=== PATIENT | male | born 1955 | race Caucasian/White ===

== ENCOUNTER → 2016-10-19 | Outpatient (CLI) | payer OTHER ==
--- NOTE | 2016-10-19 09:13 | CPEKG ---
Heart Rate: 70 RR Interval: 857 P-R Interval: 164 QRSD Interval: 94 QT Interval: 396 QTC Interval: 428 P [place]: 70 QRS [place]: -66 T Wave [place]: 33 EKG Severity - ABNORMAL ECG - EKG Impression: SINUS RHYTHM EKG Impression: VENTRICULAR BIGEMINY EKG Impression: LEFT ANTERIOR FASCICULAR BLOCK Electronically Signed By: Juan Luis Marinelli 19-Oct-2016 11:49:49
== END ==
LOC: FCP 08:58
PROVIDERS: ATTEND Otolaryngology
DX: Z01.818 Encounter for other preprocedural examination (principal)

== ENCOUNTER 2016-10-20 06:28 | Observation (INO) | payer OTHER ==
[2016-10-20] MEDS ORDERED: LIDOCAINE 1% 5 ML SDV ONE (06:30)
[2016-10-20] MEDS ORDERED: DEXAMETHASONE 10 MG/ML VIAL IVP ONE (07:00)
[2016-10-20] MEDS ORDERED: ceFAZolin 2 GM/DEXTROSE 100 ML IV ONE (07:00)
[2016-10-20] MEDS ORDERED: BUPIVACAINE 0.5% 30 ML SDV ONE (07:08)
[2016-10-20] MEDS ORDERED: LIDO/EPI 1% **Not for Epidural 20 ML MDV ONE ×2 (07:09→09:22)
--- NOTE | 2016-10-20 07:14 | CPEKG ---
Heart Rate: 68 RR Interval: 882 P-R Interval: 168 QRSD Interval: 100 QT Interval: 468 QTC Interval: 498 P [place]: 44 QRS [place]: -52 T Wave [place]: 69 EKG Severity - ABNORMAL ECG - EKG Impression: SINUS RHYTHM EKG Impression: MULTIPLE ATRIAL PREMATURE COMPLEXES EKG Impression: LAD, CONSIDER LEFT ANTERIOR FASCICULAR BLOCK EKG Impression: BORDERLINE PROLONGED QT INTERVAL Electronically Signed By: Juan Luis Marinelli 21-Oct-2016 08:40:54
[2016-10-20] MEDS ORDERED: fentaNYL 250 MCG/5 ML INJ ONE (08:18)
[2016-10-20] MEDS ORDERED: PROPOFOL 200 MG/20 ML VIAL ONE (08:18)
[2016-10-20] MEDS ORDERED: PHENYLEPHRINE HCL 50 MG in D5W 250 ML IV ONE (10:00)
[2016-10-20] MEDS ORDERED: REMIFENTANIL HCL 1 MG VIAL ONE (10:44)
[2016-10-20] MEDS ORDERED: PHENYLEPHRINE HCL 100 MCG/ML SYR ONE ×2 (11:59→12:05)
[2016-10-20] MEDS ORDERED: SUCCINYLCHOLINE CHLORIDE*ANESTHESIA ONLY*200 MG/10 ML SYR IVP ONE (12:05)
[2016-10-20] MEDS ORDERED: DEXAMETHASONE 4 MG/ML VIAL ONE (12:06)
[2016-10-20] MEDS ORDERED: ceFAZolin 1 GM VIAL ONE ×2 (12:26)
[2016-10-20] MEDS ORDERED: ONDANSETRON 4 MG/2 ML VIAL IVP PRN (13:33)
[2016-10-20] MEDS ORDERED: D5W LR 1,000 ML IV SCH (13:45)
--- NOTE | 2016-10-20 14:07 | GOP ---
DATE OF OPERATION: 10/20/2016 SURGEON: Josh Castillo MD FREELANCE WRITER: Wilton De La Rosa MD ANESTHESIA: General. PREOPERATIVE DIAGNOSIS: Right-sided facial melanoma. POSTOPERATIVE DIAGNOSIS: Right-sided facial melanoma. PROCEDURE PERFORMED: Reconstruction of right facial melanoma defect. FINDINGS: SPECIMENS: None for pathology. ESTIMATED BLOOD LOSS: Less than 50 mL. INDICATIONS: A 60-year-old status post re-excision of right facial melanoma with sentinel node biop sy, which was performed in the same procedure, and will be noted in the dictation by Dr. Wilton etienne, which should precede this dictation. DESCRIPTION OF PROCEDURE: The patient is a 60-year-old male who underwent re-excision of right faci al melanoma with Dr. De La oRsa and Dr. Brooks, prior to reconstruction. Please see their accompanyi ng report. At the conclusion of the excision and node biopsy, the patient was evaluated for reconst ructive options. He was noted to have a right lateral facial malar and preauricular region defect i nvolving the skin and subcutaneous tissue, including this mass that extended roughly 5 x 5 cm. The wound was circumferentially elevated in the deep subcutaneous plane to help release skin. Flap was then created post auricularly using an extension of the incision from the preauricular region across the base of the ear lobe post auricularly and then toward the edge of the hairline to develop a com posite cervicofacial flap. The cervicofacial flap was then developed in the deep subcutaneous plane , down to the anterior aspect of the sternocleidomastoid medially in the neck and anteriorly along t he jawline. Once adequate elevation had been performed to take tension out of the flap advancement, the cervicofacial flap was divided to allow the ear to reset into a normal position with the superi or aspect of the flap rotated and advanced into the melanoma site defect in the posterior aspect of the flap to advance posterior to superiorly to help cover the donor defect. These flaps were then t acked down with deep subcutaneous suture of 4-0 Monocryl and 3-0 Monocryl in interrupted fashion. A standing cone deformity was noted at the superomedial aspect of the flap inset, and this was excise d and rotated superiorly. Once the deep subcutaneous sutures were placed to tack the flap along the entire length of the flap and defect, the wound was closed over a 1/2-inch Wells drain with 4-0 a nd 5-0 Prolene suture with 4-0 Vicryl used for the post auricular region and skin seymour used for t he hairline incision. The wound was cleaned copiously and dressed with Bacitracin, Xeroform, Telfa, fluff, and Ute, and the patient was awakened, extubated uneventfully, and brought to the recovery room in stable, where he was expected to do well postoperatively. The patient tolerated the proced ure well. /[id number]/MODL
--- NOTE | 2016-10-20 14:17 | GOP ---
DATE OF OPERATION: 10/20/2016 SURGEON: Wilton De La Rosa MD MANAGER OF PHARMACY: Donaldo Brooks. ANESTHESIA: General. PREOPERATIVE DIAGNOSIS: Right cheek melanoma. POSTOPERATIVE DIAGNOSIS: Right cheek melanoma. PROCEDURE PERFORMED: 1. Wide excision of right cheek melanoma. 2. Virgin node biopsy. 3. Facial nerve monitoring x3 hours. FINDINGS: The re-excision was performed with no evidence of gross disease. The sentinel node was n egative for evidence of metastatic cancer. SPECIMENS: 1. Right cheek skin. 2. Frozen section biopsy #1. 3. Virgin node biopsy frozen section #2. ESTIMATED BLOOD LOSS: 100 mL. INDICATIONS: The patient is a 60-year-old man, with a diagnosis of malignant melanoma of the right cheek, just anterior to the tragus. It was excised with positive margins. He presents for wide re- excision and sentinel node biopsy, followed by reconstruction. DESCRIPTION OF PROCEDURE: The patient was taken to the OR and positively identified, placed on lilo tors, and general endotracheal anesthesia was induced. The [facility] facial nerve monitor was set up, mariah ibrated, and used throughout the procedure. The patient had previously been taken down to Radiology for injection of technetium. At this point, he was prepped and draped in the normal sterile fashio n. I marked out the primary site where the cancer had been excised, and marked out a 2 cm margin al l the way around this in a circular fashion. The skin was infiltrated with 4 cc 1% lidocaine with 1 :100,000 epinephrine, into the dermis and subdermal plane. The wide excision was then performed ext ending down to the SMAS. The specimen was oriented for the pathologist and sent for permanent secti on. At this point, the gamma probe was used to identify the likely site of the sentinel node. Some of t he technetium had been spilled onto the skin down in radiology causing some false positive high coun ts along the skin, but this was expected and recognized. An area just anterior to the tragus was fo und to have high counts. This was carefully excised with care taken not to injure branches of the f acial nerve. This was sent down for frozen section and came back negative for any the lymph nodes o r sign of cancer. I then dissected down inferiorly in the region of the tail of the parotid gland, where the imaging done in Radiology showed a likely 1st echelon sentinel node. Indeed I found a nod e in this area. It was sent for pathologic evaluation. This showed a lymph node which was hot on t he gamma counter, showing over 5000, with the surrounding counts being no higher than 300, except on the skin where technetium had been spilled. At this point, we felt that the sentinel node had succ essfully been found. We probed in the area surrounding the parotid and in the upper neck, and down all way to the clavicle and did not find any other hot spots. At this point I raised the skin up surrounding the wound, and Dr. Castillo was contacted for closure using rotational flaps. Dr. Brooks at this point broke scrub. His presence and assistance were cri tical for the safe performance of the operation at this point. Dr. Castillo came, scrubbed in, and I assisted him on the complex closure using the rotational flaps, which he will dictate as a separate operation. The patient tolerated procedure well. In the postoperative care unit his facial nerve was functioni ng normally. COMPLICATIONS: None. /[id number]/MODL
--- NOTE | 2016-10-20 16:59 | SOAPPROG ---
SOAP Progress Note Assessment/Plan: pt doing well s/p parotid node resection. No pian. no weakness dressing intact Plan:Pt doing great. Plan for discharge tomorrow. 10/20/16 16:57 Objective: Vital Signs Temp Pulse Resp BP Pulse Ox 36.9 C 96 14 122/84 H 95 10/20/16 16:29 10/20/16 16:29 10/20/16 16:29 10/20/16 16:29 10/20/16 16:29 10/19/16 10/20/16 10/21/16 05:59 05:59 05:59 Intake Total 1900 Output Total 500 Balance 1400 - Pending Discharge Pending Discharge Within 24 Hours: Yes Pending Discharge Date: 10/21/16 Pending Discharge Time: 11:00 ICD10 Worksheet Patient Problems: Problems Problem Status Onset Melanoma Acute - ICD10 Problem Qualifiers (1) Melanoma Qualifiers: Melanoma location: neck Laterality: L Qualified Code(s): C43.4 - Malignant melanoma of scalp and neck
[2016-10-20] MEDS ORDERED: ceFAZolin 2 GM in D5W 100 ML IV SCH (20:25)
[2016-10-20] MEDS ORDERED: ceFAZolin 2 GM/DEXTROSE 100 ML IV SCH (20:25)
[2016-10-21 07:30] VITALS: BP 97/58; PULSE 74; RESP 18; TEMP 98.2; O2SAT 94
[2016-10-21] MEDS ORDERED: ceFAZolin 2 GM in D5W 100 ML IV SCH (08:00)
--- NOTE | 2016-10-21 11:50 | SOAPPROG ---
SOAP Progress Note Assessment/Plan: PATIENT SEEN BY DR. JONES Assessment: 60 year old male POD 1 s/p wide excision right cheek melanoma and sentinal node biopsy. Doing well. Pressure dressing replaced. - Discharge home today - Return to clinic tomorrow for pressure dressing replacement AYUSH Thomas Dr. saw patient and agrees with above 10/21/16 11:47 Subjective: 60 year old male POD 1 s/p wide excision of right cheek melanoma and sentinal node biopsy. Doing well. Objective: Vital Signs Temp Pulse Resp BP Pulse Ox 36.8 C 74 18 97/58 L 94 10/21/16 07:29 10/21/16 07:29 10/21/16 07:29 10/21/16 07:29 10/21/16 07:29 10/20/16 10/21/16 10/22/16 05:59 05:59 05:59 Intake Total 2200 8109 Output Total 7733 300 Balance -565 2069 Pressure dressing replaced ICD10 Worksheet Patient Problems: Problems Problem Status Onset Melanoma Acute
== END 2016-10-21 12:42 | disposition home or self-care (01) ==
LOC: F3N 06:28 → F3E 15:23
PROVIDERS: ADMIT Otolaryngology; ATTEND Otolaryngology
PROC: 0HX1XZZ Transfer Face Skin, External Approach (ICD-10-PCS; principal; 2016-10-20 09:08)
PROC: 07B00ZX Excision of Head Lymphatic, Open Approach, Diagnostic (ICD-10-PCS; principal; 2016-10-20 09:08)
PROC: 0CB Mouth and Throat, Excision (ICD-10-PCS; principal; 2016-10-20 09:08)
PROC: 0HB1XZZ Excision of Face Skin, External Approach (ICD-10-PCS; principal; 2016-10-20 09:08)
DX: C43.39 Malignant melanoma of other parts of face (principal); R94.31 Abnormal electrocardiogram [ECG] [EKG]
CPT/HCPCS: A9520; G0378; J0330; J0690; J1100; J2370; J2704; J3010